=== PATIENT | female | born 2000 | race African-American/Black ===

== ENCOUNTER 2018-01-23 17:24 | Emergency (ER) | payer OTHER ==
[~2018-01-23] VITALS: Ht 157.5 cm; Wt 57.2 kg
[2018-01-23 17:28] VITALS: TEMP 36.6; Ht 157.5 cm; Wt 57.2 kg
--- NOTE | 2018-01-23 17:56 | EMERGENCY ROOM VISIT NOTE ---
History Report prepared by Naveed: Diana Richards Under the Supervision of: Dr. J Carlos Saunders M.D. First contact with patient: 17:38 Chief Complaint: MENTAL HEALTH EVALUATION Stated Complaint: MENTAL HEALTH EVAL History of Present Illness The patient is a 17 year old female who presents to the Emergency Room with complaints of persistent thoughts of hurting herself that has been ongoing for 4 years. The patient's boyfriend told the piano case maker that the patient had a rope around her neck with intentions of hanging herself. The patient has voices in her head that are telling her to kill herself. She states the voices have been ongoing for a while but they are more prominent now. She notes one voice tells her negative things and another one tells her to hurt herself. She reports today a voice told her to take pills and hang herself. The patient denies having a rope tied around her neck despite the boyfriends statement to the piano case maker. She notes she asked the boyfriend to take her pills. The patient reports she sometimes sees people in her closet at night when she does not have her glasses on. She also notes she hears them walking around her house. The patient denies being on medications. She notes she does not drink alcohol or use drugs. She reports she has never been seen for psychiatric care before. She states she not been sleeping well recently. She notes she is under stress because of school and work. The patient states she has a headache. Source of History: patient Onset: ongoing for 4 years Position: other (mental health ) Timing: other (persistent) Associated Symptoms: + headache Review of Systems See HPI for pertinent positives & negatives. A total of 10 systems reviewed and were otherwise negative. Past Medical & Surgical Depression, anxiety. Old medical records were reviewed. Nurse's notes were reviewed and I agree with. Family History No pertinent family history Social History Smoking Status: Never Smoker Drug Use: none Marital Status: single Housing Status: lives with significant other Occupation Status: employed Current/Historical Medications Scheduled Control Pills ( Control Pills), 1 TAB PO DAILY Allergies Coded Allergies: No Known Allergies (Unverified , 01/23/18) Physical Exam Vital Signs Date Time Temp Pulse Resp B/P (MAP) Pulse Ox O2 Delivery O2 Flow Rate FiO2 01/23/18 22:15 80 16 117/81 99 Room Air 01/23/18 17:28 36.6 92 16 135/88 99 Room Air Physical Exam General: Non-ill appearing young female in no acute distress. HEENT: Normal cephalic atraumatic. Pupils are equal round and reactive to light. Extraocular movements are intact. Oropharynx is pink with moist mucous membranes. No swelling of the mouth lips or tongue. Neck: Supple with a midline trachea. No meningeal signs or stiffness, no JVD or bruits. No Stridor. Chest: Clear to auscultation bilaterally. No wheezes or rhonchi. No increased work of breathing. Heart: regular rate and rhythm. Abdomen: Soft nontender, nondistended without rebound guarding or rigidity. Extremities: No cyanosis clubbing or edema. No calf tenderness or assymetry Spine/Back. Non tender to palpation. No CVA tenderness Skin: Good turgor without rashes. Neurologic exam: Cranial nerves two through 12 are intact. Motor and sensation are intact and symmetrical throughout. Psych: normal thought process and affect, has been hearing voices and seeing shadows, does not appear to be responding to external stimuli. Medical Decision & Procedures Laboratory Results 01/23/18 18:37 Red Blood Count 5.34, Mean Corpuscular Volume 83.3, Mean Corpuscular Hemoglobin 28.8, Mean Corpuscular Hemoglobin Concent 34.6, Mean Platelet Volume 9.8, Neutrophils (%) (Auto) 55.7, Lymphocytes (%) (Auto) 37.8, Monocytes (%) (Auto) 5.5, Eosinophils (%) (Auto) 0.5, Basophils (%) (Auto) 0.2, Neutrophils # (Auto) 3.52, Lymphocytes # (Auto) 2.39, Monocytes # (Auto) 0.35, Eosinophils # (Auto) 0.03, Basophils # (Auto) 0.01 01/23/18 18:37 Test 01/23/18 18:05 01/23/18 18:37 Urine Opiates Screen NEG (NEG) Urine Methadone, Qualitative NEG (NEG) Urine Barbiturates NEG (NEG) Urine Phencyclidine (PCP) Level NEG (NEG) Ur Amphetamine/Methamphetamine NEG (NEG) MDMA (Ecstasy) Screen NEG (NEG) Urine Benzodiazepines Screen NEG (NEG) Urine Cocaine Metabolite NEG (NEG) Urine Marijuana (THC) NEG (NEG) White Blood Count 6.32 K/uL (4.8-10.8) Red Blood Count 5.34 M/uL (4.2-5.4) Hemoglobin 15.4 g/dL (12.0-16.0) Hematocrit 44.5 % (37-47) Mean Corpuscular Volume 83.3 fL (80-100) Mean Corpuscular Hemoglobin 28.8 pg (25-34) Mean Corpuscular Hemoglobin Concent 34.6 g/dl (32-36) Platelet Count 288 K/uL (130-400) Mean Platelet Volume 9.8 fL (7.4-10.4) Neutrophils (%) (Auto) 55.7 % Lymphocytes (%) (Auto) 37.8 % Monocytes (%) (Auto) 5.5 % Eosinophils (%) (Auto) 0.5 % Basophils (%) (Auto) 0.2 % Neutrophils # (Auto) 3.52 K/uL (1.4-6.5) Lymphocytes # (Auto) 2.39 K/uL (1.2-3.4) Monocytes # (Auto) 0.35 K/uL (0.11-0.59) Eosinophils # (Auto) 0.03 K/uL (0-0.5) Basophils # (Auto) 0.01 K/uL (0-0.2) RDW Standard Deviation 38.6 fL (36.4-46.3) RDW Coefficient of Variation 12.8 % (11.5-14.5) Immature Granulocyte % (Auto) 0.3 % Immature Granulocyte # (Auto) 0.02 K/uL (0.00-0.02) Anion Gap 4.0 mmol/L (3-11) Est Creatinine Clear Calc Drug Dose 65.1 ml/min Estimated GFR () 84.3 Estimated GFR (Non- 72.7 BUN/Creatinine Ratio 10.6 (10-20) Calcium Level 9.0 mg/dl (8.5-10.1) Total Bilirubin 0.6 mg/dl (0.2-1) Direct Bilirubin 0.1 mg/dl (0-0.2) Aspartate Amino Transf (AST/SGOT) 13 U/L (15-37) Alanine Aminotransferase (ALT/SGPT) 16 U/L (12-78) Alkaline Phosphatase 46 U/L (45-117) Total Protein 7.5 gm/dl (6.4-8.2) Albumin 3.1 gm/dl (3.4-5.0) Lipase 92 U/L (73-393) Thyroid Stimulating Hormone (TSH) 1.950 uIu/ml (0.300-4.500) Human Chorionic Gonadotropin, Qual NEG (NEG) Salicylates Level < 1.7 mg/dl (2.8-20) Acetaminophen Level < 2 ug/ml (10-30) Ethyl Alcohol mg/dL < 3.0 mg/dl (0-3) Laboratory studies as stated above per my review. ED Course 173: Past medical records reviewed. The patient was evaluated in room A7, and a complete history and physical examination were performed. 193: family services manager spoke with patient and she is now willing to sign herself in voluntarily. 1950: The patient and her boyfriend had several questions regarding the [facility]. I answered all of their questions. Medical Decision Differentials include, but are not limited to; electrolyte or metabolic abnormality, depression, anxiety, toxicologic process, schizophrenia. This patient comes in as described above. She was placed in room A7. She was brought over [facility] with suicidal ideations. She may have placed a rope around her neck although she denies this. She has been hearing voices and seeing things and this is never been addressed she says and she has never seen a doctor for this. She says the voices are telling her to hurt herself. At present, she appears cooperative and does not appear to be responding to external stimuli. Multiple blood testing was obtained as well as urinalysis for medical clearance. She was reassessed frequently. She was medically cleared. There is no evidence to suggest acute electrolyte or metabolic or toxicologic process. She is not . At this point she is willing to sign in voluntarily. She is going to be sent to the [facility] for further inpatient treatment and evaluation and safety. Medication Reconcilliation Current Medication List: was personally reviewed by me Impression Primary Impression: Unspecified psychosis Additional Impressions: Suicidal ideation Depression Auditory hallucination Scribe Attestation The scribe's documentation has been prepared under my direction and personally reviewed by me in its entirety. I confirm that the note above accurately reflects all work, treatment, procedures, and medical decision making performed by me. Departure Information Dispostion Mental Health Acute Care Referrals No Doctor, Assigned (PCP) Patient Instructions My [facility] Problem Qualifiers
[2018-01-23] MEDS ORDERED: BCPILLS PO (18:04)
[2018-01-23 18:59] LABS: BASO % 0.2 %; BASO ABS # 0.01 K/uL (0-0.2); EOS % 0.5 %; EOS ABS # 0.03 K/uL (0-0.5); HEMATOCRIT 44.5 % (37-47); HEMOGLOBIN 15.4 g/dL (12.0-16.0); IG# 0.02 K/uL (0.00-0.02); LYMPH % 37.8 %; LYMPH ABS # 2.39 K/uL (1.2-3.4); MEAN CELL VOLUME 83.3 fL (80-100); MEAN CORPUSCULAR HEMOGLOBIN 28.8 pg (25-34); MEAN CORPUSCULAR HGB CONC 34.6 g/dl (32-36); MEAN PLATELET VOLUME 9.8 fL (7.4-10.4); MONO % 5.5 %; MONO ABS # 0.35 K/uL (0.11-0.59); NEUT % 55.7 %; NEUT ABS # 3.52 K/uL (1.4-6.5); PLATELET COUNT 288 K/uL (130-400); RED CELL DISTRIBUTION WIDTH CV 12.8 % (11.5-14.5); RED CELL DISTRIBUTION WIDTH SD 38.6 fL (36.4-46.3); WHITE BLOOD COUNT 6.32 K/uL (4.8-10.8)
[2018-01-23 19:21] LABS: CREATININE 1.1 mg/dl (0.60-1.20); POTASSIUM 3.7 mmol/L (3.5-5.1)
[2018-01-23 19:51] LABS: ALBUMIN 3.1 gm/dl (3.4-5.0); TOTAL PROTEIN 7.5 gm/dl (6.4-8.2)
[2018-01-23 23:11] VITALS: BP 118/72; PULSE 78; O2SAT 98
== END 2018-01-23 23:12 ==
LOC: C.EDB 17:26 → C.EDA 23:12
DX: R45.851 Suicidal ideations (principal); R44.0 Auditory hallucinations; R44.1 Visual hallucinations; R51 Headache; Z79.3 Long term (current) use of hormonal contraceptives